=== PATIENT | female | born 1995 | race American Indian/Alaskan Native ===

== ENCOUNTER 2017-07-04 22:17 | Emergency (ER) | payer SELFPAY ==
[2017-07-04 22:44] VITALS: BP 135/84
[2017-07-04] MEDS ORDERED: TYLENOL PO ONE (22:44)
[2017-07-04] MEDS ORDERED: TYLENOL ONE (22:46)
== END 2017-07-05 09:06 | disposition left against medical advice (07) ==
LOC: ED 22:17
DX: R19.7 Diarrhea, unspecified (principal); Z53.21 Procedure and treatment not carried out due to patient leaving prior to being seen by health care provider

== ENCOUNTER 2020-09-27 11:59 | Emergency (ER) | payer SELFPAY ==
[2020-09-27 13:16] VITALS: BP 126/82
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
== END 2020-09-27 15:00 | disposition home or self-care (01) ==
LOC: ED 11:59
DX: M79.602 Pain in left arm (principal); M79.605 Pain in left leg; M54.6 Pain in thoracic spine; J45.909 Unspecified asthma, uncomplicated; E66.01 Morbid (severe) obesity due to excess calories; Z79.899 Other long term (current) drug therapy; Z91.010 Allergy to peanuts; V49.49XA Driver injured in collision with other motor vehicles in traffic accident, initial encounter; Y92.410 Unspecified street and highway as the place of occurrence of the external cause; Y93.89 Activity, other specified; Y99.8 Other external cause status
CPT/HCPCS: 99281

== ENCOUNTER 2020-09-29 17:50 | Emergency (ER) | payer SELFPAY ==
[2020-09-29 19:51] VITALS: BP 123/88
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
== END 2020-09-29 20:59 | disposition home or self-care (01) ==
LOC: ED 17:50
DX: B35.8 Other dermatophytoses (principal); E66.3 Overweight; J45.909 Unspecified asthma, uncomplicated; Z79.899 Other long term (current) drug therapy; Z91.010 Allergy to peanuts
CPT/HCPCS: 99281